=== PATIENT | female | born 1985 | race Caucasian/White ===

== ENCOUNTER → 2020-12-31 12:50 | Outpatient (CLI) | payer OTHER, MEDICAID, SELFPAY | PROVIDERS: Visit Provider Physician Assistant | DX: R30.0 Dysuria (principal) | CPT/HCPCS: 87077; 87086; 87186 ==

== ENCOUNTER 2023-02-26 21:28 | Emergency (ER) | payer OTHER, MEDICAID, SELFPAY ==
[2023-02-26 21:44] VITALS: BP 215/104; PULSE 73; RESP 20; TEMP 36.4; O2SAT 98; BMI 43.5
[2023-02-26 22:26] LABS: Add Manual Diff / Slide Review NO; Basophils Absolute Auto 100 /uL (0-100); Eosinophils Absolute Auto 400 /uL (0-450); Hematocrit 36.9 % (36-46); Hemoglobin 12.2 g/dL (12.0-16.0); Lymphocytes Absolute Auto 2400 /uL (1100-4500); Lymphocytes Percent Auto 28.9 % (25-40); Mean Corpuscular HGB Conc 33.1 % (30-36); Mean Corpuscular Hemoglobin 24.4 PG (26-34); Mean Corpuscular Volume 73.9 fL (80-100); Monocytes Absolute Auto 700 /uL (0-900); Monocytes Percent Auto 8.4 % (3-14); Neutrophils Absolute Auto 4700 /uL (1500-7000); Neutrophils Percent Auto 56.7 % (50-75); Platelet Count 306 X10^3/uL (150-400); Red Cell Distribution Width 17.9 % (11.6-14.8); White Blood Cell Count 8.3 X10^3/uL (4.5-11.0)
--- NOTE | 2023-02-26 22:26 | ED_ITS ---
HPI - Abdominal Pain General Chief Complaint: Abdominal Pain Stated Complaint: Rib pain Time Seen by Provider: 02/26/23 22:21 Source: patient Mode of arrival: Ambulatory History of Present Illness HPI narrative: Patient is a 37-year-old, uses pronouns they and them, history of multiple kidney surgeries and ureteral surgeries presenting today with sudden onset of right upper quadrant pain. They says it comes and goes throughout the day, they deny any nausea or vomiting. They deny any injury cough shortness of breath fever or chills. No radiation of pain. This does not feel like prior kidney stones, no flank pain. No problems yesterday. Related Data Previous Rx's Medication Instructions Recorded hydrocodone 5 mg-acetaminophen 325 1 tab PO Q6H PRN pain #10 tabs 02/27/23 mg tablet ondansetron 4 mg disintegrating 4 mg PO Q8H PRN nausea and 02/27/23 tablet vomiting #10 tabs Allergies Allergy/AdvReac Type Severity Reaction Status Date / Time gabapentin Allergy Severe Confusion Verified 02/26/23 22:35 Review of Systems Review of Systems ROS Unobtainable: All systems reviewed & are unremarkable except as noted in HPI and below Patient History Social History Smoking Status: Never smoker Smoking Status: Never smoker alcohol intake frequency: holidays/special occasions only Substance Use Type: marijuana Exam Initial Vital Signs Initial Vital Signs: Vital Signs Temperature 97.6 F 02/26/23 21:44 Pulse Rate 73 02/26/23 21:44 Respiratory Rate 20 02/26/23 21:44 Blood Pressure 215/104 H 02/26/23 21:44 Pulse Oximetry 98 02/26/23 21:44 Oxygen Delivery Method Room Air 02/26/23 21:44 GENERAL: Alert pleasant no acute distress and in no acute distress. HEENT: Head atraumatic,EOMI, pupils reactive, face symmetric, moist mucous membranes CARDIOVASCULAR: Regular rate and rhythm without murmurs, rubs or gallops. RESPIRATORY: Breath sounds equal bilaterally, no wheezes rales or rhonchi. ABDOMEN: Soft, positive Newby's sign right upper quadrant tenderness mild epigastric pain no guarding or rebound : No CVA tenderness EXTREMITIES: Normal range of motion, no clubbing or edema. Neurovascularly intact NEUROLOGICAL: Alert and oriented x4. SKIN: Warm, dry, no laceration, no petechiae, no rashes or lesions. Course Orders Ordered: ED Orders 02/26/23 22:15 Complete Blood Count AUTO DIFF Stat Comprehensive Metabolic Panel Stat Lipase Stat 02/26/23 22:26 US abdomen limited Stat Discontinued Medications Hydrocodone Bitart/Acetaminophen (Hydrocodone/Acet 5/325 Prepack) 1 bottle MISC SEEINSTR ONE Stop: 02/27/23 00:10 Last Admin: 02/27/23 00:30 Dose: 1 bottle Documented By: LINDA Hydromorphone HCl (Hydromorphone 1 Mg Inj) 1 mg IV NOW ONE Stop: 02/27/23 00:10 Last Admin: 02/27/23 00:27 Dose: 1 mg Documented By: LINDA Morphine Sulfate (Morphine 4 Mg/Ml Inj) 4 mg IV NOW ONE Stop: 02/26/23 22:27 Last Admin: 02/26/23 22:36 Dose: 4 mg Documented By: LINDA Ondansetron HCl (Ondansetron 4 Mg/2 Ml Inj) 4 mg IV NOW PRN PRN Reason: Nausea And Vomiting Ondansetron HCl (Ondansetron 4 Mg Odt) 4 mg PO NOW PRN PRN Reason: Nausea And Vomiting Ondansetron HCl (Ondansetron 4 Mg/2 Ml Inj) 4 mg IV NOW ONE Stop: 02/26/23 22:27 Last Admin: 02/26/23 22:36 Dose: 4 mg Documented By: LINDA Ondansetron HCl (Ondansetron 4 Mg Odt Prepack) [facility] Stop: 02/27/23 00:10 Last Admin: 02/27/23 00:32 Dose: 1 bottle Documented By: LINDA Vital Signs Vital signs: Vital Signs - 8 hr 02/26/23 21:44 02/26/23 22:29 02/26/23 22:29 Temperature 97.6 F Pulse Rate 73 67 Respiratory Rate 20 Blood Pressure 215/104 H 194/109 H Pulse Oximetry 98 98 Oxygen Delivery Method Room Air 02/26/23 22:30 02/26/23 22:36 02/26/23 22:36 Temperature Pulse Rate 64 61 Respiratory Rate 19 20 Blood Pressure 215/95 H Pulse Oximetry 98 97 Oxygen Delivery Method 02/26/23 23:00 02/26/23 23:00 02/26/23 23:30 Temperature Pulse Rate 69 Respiratory Rate Blood Pressure 182/82 H 172/95 H Pulse Oximetry 98 Oxygen Delivery Method 02/26/23 23:30 02/27/23 00:00 02/27/23 00:00 Temperature Pulse Rate 64 65 Respiratory Rate 18 Blood Pressure 185/88 H Pulse Oximetry 98 98 Oxygen Delivery Method 02/27/23 00:30 02/27/23 01:00 Temperature Pulse Rate 66 64 Respiratory Rate 18 Blood Pressure 179/98 H Pulse Oximetry 99 99 Oxygen Delivery Method Room Air MDM - Abdominal Pain Lab Data 02/26/23 22:15 02/26/23 22:15 Labs: Lab Results 02/26/23 02/26/23 Range/Units 22:15 22:15 WBC 8.3 (4.5-11.0) X10^3/uL RBC 5.00 (4.0-5.2) X10^6/uL Hgb 12.2 (12.0-16.0) g/dL Hct 36.9 (36-46) % MCV 73.9 L (80-100) fL MCH 24.4 L (26-34) PG MCHC 33.1 (30-36) % RDW 17.9 H (11.6-14.8) % Plt Count 306 (150-400) X10^3/uL Neut % (Auto) 56.7 (50-75) % Lymph % (Auto) 28.9 (25-40) % [place] % (Auto) 8.4 (3-14) % Eos % (Auto) 5.0 H (2-4) % Baso % (Auto) 1.0 (0-2) % Neut # (Auto) 4700 (0141-7767) /uL Lymph # (Auto) 2400 (2794-7232) /uL [place] # (Auto) 700 (0-900) /uL Eos # (Auto) 400 (0-450) /uL Baso # (Auto) 100 (0-100) /uL Sodium 138 (137-145) mmol/L Potassium 4.3 (3.4-5.1) mmol/L Chloride 104 (98-107) mmol/L Carbon Dioxide 24 (22-32) mmol/L BUN 14 (7-17) mg/dL Creatinine 0.88 (0.52-1.04) mg/dL Estimated GFR > 60 (>60) mL/min BUN/Creatinine Ratio 15.9 (6-22) Glucose 100 (70-100) mg/dL Calcium 9.2 (8.4-10.2) mg/dL Total Bilirubin 0.4 (0.2-1.3) mg/dL AST 45 H (14-36) IU/L ALT 40 H (<35) IU/L Alkaline Phosphatase 58 (38-126) U/L Total Protein 8.3 H (6.3-8.2) g/dL Albumin 4.7 (3.5-5.0) g/dL Globulin 3.6 (1.7-4.1) g/dL Albumin/Globulin Ratio 1.3 (1.0-2.8) Lipase 73 (23-300) U/L Imaging Data US - abdomen: Radiologist's Impression: PROCEDURE: US ABDOMEN LIMITED ? INDICATIONS:? RUQ PAIN ? TECHNIQUE:? Real-time focused scanning was performed of the abdomen, with image documentation.? ? COMPARISON:? None. ? FINDINGS: The liver is normal in size at 15.9 cm and may be mildly increased in echogenicity although evaluation is technically limited due to patient body habitus. ? A few tiny calcified gallstones are seen in the gallbladder.? No gallbladder wall thickening or pericholecystic fluid.? Sonographic Newby sign is positive. ? No intrahepatic or extrahepatic biliary ductal dilatation.? The common bile duct measures 5 mm in diameter. ? IMPRESSION:? Cholelithiasis without gallbladder wall thickening or pericholecystic fluid.? Sonographic Newby sign is reportedly positive.? Findings are equivocal for acute cholecystitis and clinical correlation is recommended.? Approved by: Dru Meyers M.D. on 02/26/2023 at 23:33? [facility] Narrative Medical decision making narrative: Patient is a 37-year-old presenting with sudden onset of right upper quadrant pain waxing and waning in nature, concerning for cholecystitis cholelithiasis. She is afebrile without leukocytosis anemia. Bilirubin is within normal limits at 0.4 LFTs are slightly a they did 45 and 40 but not considered clinically significant and lipase is within normal limits. No evidence of pancreatitis or choledochalithiasis. Ultrasound does show cholelithiasis without evidence goal bladder wall thickening or pericholecystic fluid. She was tender upon palpation. She had ibuprofen just 2 hours prior to arrival so Toradol not simon cated she is given morphine and Zofran. It did help for a little while however pain started coming back. We discussed low-fat diet pain control and follow-up for elective surgery. However we went over warning signs and when to return to ED. Discharge Plan Departure Patient Disposition: Home Clinical Impression: Cholelithiasis Instructions: DI for Gallstones Activity Restrictions/Additional Instructions: *You have been diagnosed with cholelithiasis *What to do: At this time you do have gallstones it is likely causing some of your pain. Currently you do not have an infection. Follow a low-fat diet. You will ultimately need to have her gallbladder removed however it does not need to be emergently removed today *Continue to take medications as directed Milo 1 tablet every 6 hours if needed for severe pain Motrin 600 mg every 6 hours if needed for [id number]-[id number] pain Zofran 4 mg every 8 hours for nausea or vomiting *Follow up with your primary care provider in 2-3 days or call [phone] *Return to ER if you should have increasing pain, fever, vomiting or any new, worsening or concerning symptoms CONTROLLED SUBSTANCE DISCHARGE (Narcotoic/benzodiazepine/Flexeril/Phenergan) 1. You have been prescribed narcotic medications, it does have acetaminophen/Tylenol/paracetamol in it, DO NOT TAKE MORE THAN 4,00mg in 24 hours of Tylenol. TRAMADOL DOES NOT CONTAIN TYLENOL 2. Please understand that we cannot provide further refills of narcotics, benzodiazepines or controlled substances through the ED and her pain management will need to be through your provider. 3. While on these medications you cannot drive or operate heavy machinery. 4. You cannot sign legal documents or perform any duties such as this. 5. As long as you're taking opiate pain medications he should also be taking a stool softener such as Colace, Dulcolax, MiraLAX or prune juice, to help avoid constipation. Prescriptions: New hydrocodone-acetaminophen 5-325 mg tablet 1 tab PO Q6H PRN (Reason: pain) Qty: 10 0RF ondansetron 4 mg tablet,disintegrating 4 mg PO Q8H PRN (Reason: nausea and vomiting) Qty: 10 0RF Stand Alone Forms: Patient Portal/API
--- NOTE | 2023-02-26 22:26 | DI.US.S_ITS ---
PROCEDURE: US ABDOMEN LIMITED INDICATIONS: RUQ PAIN TECHNIQUE: Real-time focused scanning was performed of the abdomen, with image documentation. COMPARISON: None. FINDINGS: The liver is normal in size at 15.9 cm and may be mildly increased in echogenicity although evaluation is technically limited due to patient body habitus. A few tiny calcified gallstones are seen in the gallbladder. No gallbladder wall thickening or pericholecystic fluid. Sonographic Newby sign is positive. No intrahepatic or extrahepatic biliary ductal dilatation. The common bile duct measures 5 mm in diameter. IMPRESSION: Cholelithiasis without gallbladder wall thickening or pericholecystic fluid. Sonographic Newby sign is reportedly positive. Findings are equivocal for acute cholecystitis and clinical correlation is recommended. Approved by: Dru Meyers M.D. on 02/26/2023 at 23:33
[2023-02-26 22:29] VITALS: BP 194/109; PULSE 67; O2SAT 98
[2023-02-26 22:30] VITALS: PULSE 64; RESP 19; O2SAT 98
[2023-02-26 22:36] VITALS: BP 215/95; PULSE 61; RESP 20; O2SAT 97
[2023-02-26 22:36] LABS: Alanine Aminotransferase 40 IU/L (<35); Albumin 4.7 g/dL (3.5-5.0); Albumin Globulin Ratio 1.3 (1.0-2.8); Alkaline Phosphatase 58 U/L (38-126); Aspartate Aminotransferase 45 IU/L (14-36); BUN Creatinine Ratio 15.9 (6-22); Bilirubin Total 0.4 mg/dL (0.2-1.3); Blood Urea Nitrogen 14 mg/dL (7-17); Calcium 9.2 mg/dL (8.4-10.2); Carbon Dioxide 24 mmol/L (22-32); Chloride 104 mmol/L (98-107); Estimated Glomerular Filt Rate > 60 mL/min (>60); Globulin 3.6 g/dL (1.7-4.1); Glucose 100 mg/dL (70-100); HEMOLYSIS 30 (0-50); Lipase 73 U/L (23-300); Potassium 4.3 mmol/L (3.4-5.1); Sodium 138 mmol/L (137-145); Total Protein 8.3 g/dL (6.3-8.2)
[2023-02-26] MEDS: ONDANSETRON 4 MG/2 ML INJ IV (22:36)
[2023-02-26] MEDS: MORPHINE 4 MG/ML INJ IV (22:36)
[2023-02-26 23:00] VITALS: BP 182/82; PULSE 69; O2SAT 98
[2023-02-26 23:30] VITALS: BP 172/95; PULSE 64; RESP 18; O2SAT 98
[2023-02-27] VITALS: BP 185/88; PULSE 65; O2SAT 98
[2023-02-27] MEDS: HYDROMORPHONE 1 MG INJ IV (00:27)
[2023-02-27 00:30] VITALS: PULSE 66; O2SAT 99
[2023-02-27] MEDS: HYDROCODONE/ACET 5/325 PREPACK 1 BOTTLE MISC (00:30)
[2023-02-27] MEDS: ONDANSETRON 4 MG ODT PREPACK 1 BOTTLE MISC (00:32)
[2023-02-27 01:00] VITALS: BP 179/98; PULSE 64; RESP 18; O2SAT 99
== END 2023-02-27 01:01 | disposition home or self-care (01) ==
PROVIDERS: Emergency Provider Emergency Medicine
DX: K80.20 Calculus of gallbladder without cholecystitis without obstruction (principal)
CPT/HCPCS: 36415; 76705; 80053; 83690; 85025; 96374; 96375; 99284; J1170; J2270; J2405

== ENCOUNTER → 2024-05-24 12:50 | Outpatient (CLI) | payer OTHER, MEDICAID, SELFPAY ==
--- NOTE | 2024-05-24 12:52 | DI.RAD.S_ITS ---
PROCEDURE: XR FOOT RT MIN 3V INDICATIONS: Right foot / toes injury TECHNIQUE: 3 views of the foot were acquired. COMPARISON: None. FINDINGS: Bones: No fractures or dislocations. Tailor bunion. No suspicious bony lesions. Soft tissues: No tibiotalar joint effusion. Achilles tendon appears normal. IMPRESSION: No acute bony abnormality. Dictated by: Serafin Mcallister M.D. on 05/24/2024 at 13:19 Approved by: Serafin Mcallister M.D. on 05/24/2024 at 13:19
== END ==
PROVIDERS: PCP Physician Assistant; Referring Provider Physician Assistant Surgical; Visit Provider Physician Assistant Surgical
DX: S99.921A Unspecified injury of right foot, initial encounter (principal); M21.621 Bunionette of right foot; X58.XXXA Exposure to other specified factors, initial encounter
CPT/HCPCS: 73630